=== PATIENT | female | born 1960 | race Caucasian/White ===

== ENCOUNTER → 2017-05-29 | Outpatient (CLI) | payer BC ==
[2017-05-29 07:34] LABS: Partial Thromboplastin Time 24.1 sec (22.0-30.0)
[2017-05-29 07:50] LABS: ALT 44 U/L (9-52); AST 29 U/L (14-36); Alkaline Phosphatase 106 U/L (38-126); Anion Gap 11 mmol/L; Blood Urea Nitrogen 23 mg/dL (7-17); Calcium 9.3 mg/dL (8.4-10.2); Carbon Dioxide 27 mmol/L (22-30); Chloride 103 mmol/L (98-107); Glucose 112 mg/dL (74-99); Non-African American GFR(MDRD) >60 (>60 ml/min/1.73 sqM); Sodium 141 mmol/L (137-145); Total Bilirubin 1.2 mg/dL (0.2-1.3)
[2017-05-29 08:17] LABS: Basophils % (A) 0 %; CH 29.7; CHCM 32.5; Eosinophils # (A) 0.3 k/uL (0-0.7); Eosinophils % (A) 4 %; HCT 42.7 % (34.0-46.0); HDW 2.33; HGB 13.7 gm/dL (11.4-16.0); Luc # (Auto) 0.13; Luc % (Auto) 2; Lymphocytes # (A) 2.6 k/uL (1.0-4.8); Lymphocytes % (A) 35 %; MCH 29.4 pg (25.0-35.0); MCV 91.7 fL (80.0-100.0); Mean Platelet Volume 8.6; Monocytes # (A) 0.4 k/uL (0-1.0); Monocytes % (A) 5 %; Neutrophils # (A) 3.9 k/uL (1.3-7.7); Neutrophils % (A) 53 %; RBC 4.66 m/uL (3.80-5.40); RDW 15.4 % (11.5-15.5); WBC 7.3 k/uL (3.8-10.6); WBC (Perox) 7.18
== END | disposition home or self-care (01) ==
LOC: LABPAT 07:06
PROVIDERS: ATTEND Orthopaedic Surgery
DX: Z01.812 Encounter for preprocedural laboratory examination (principal)
CPT/HCPCS: 80053; 85025; 85610; 85730; 87070

== ENCOUNTER 2017-06-15 07:34 | Inpatient (IN) | payer BC, OTHER ==
[2017-06-05 16:11] VITALS: BMI 43.9
--- NOTE | 2017-06-14 14:38 | HP ---
Surgery is scheduled for 06/15/2017. Darcy Kenyon is a 56-year-old patient seen with symptomatic left knee osteoarthritis. After discussing options regarding treatment, she elected to proceed with left total knee arthroplasty. Consent was obtained. Preoperative medical clearance was provided by Dr. Bray. PAST MEDICAL HISTORY: Hypertension, asthma. PAST SURGICAL HISTORY: Left knee arthroscopy. DAILY MEDICATIONS: Ibuprofen, triamterene/hydrochlorothiazide. ALLERGIES: None. SOCIAL HISTORY: Patient denies tobacco use. PHYSICAL EVALUATION OF THE LEFT KNEE: Her range of motion is 0 to 90 degrees. There is tenderness along the medial and lateral joint lines. Crepitance along the medial and patellofemoral compartment with range of motion. Pain on patellofemoral compression. Ligaments are stable. Hip rotation is without pain. Distal neurovascular exam is intact. Left knee radiographs reveal severe osteoarthritis. IMPRESSION: Left knee osteoarthritis. PLAN: Lef total knee arthroplasty. SOPHIA
[~2017-06-15 07:34] MED LIST: ACETAMINOPHEN TAB 500 MG TAB PO ONE; DEXAMETHASONE SOD PHOSPHATE 10 MG/ML 1 ML VIAL IV ONE; HYDROmorphone 1 MG/ML 1 ML SYRINGE IVP PRN; MELOXICAM 7.5 MG TAB PO ONE; MIDAZOLAM 2 MG/2 ML VIAL IV PRN; ONDANSETRON 4 MG/2 ML VIAL IVP ONE; TRANEXAMIC ACID 1,000 MG in SODIUM CHLORIDE 0.9% 100 ML IVPB ONE; ceFAZolin 2 GM in SODIUM CHLORIDE 0.9% 100 ML IVPB ONE
[2017-06-15] MEDS ORDERED: LIDOCAINE 1% 20 ML VIAL (10MG/ML) FOR IV START INTRADERMA ONE (12:00)
[2017-06-15] MEDS: LACTATED RINGERS 1,000 ML IV SCH ×2 (12:00→17:26)
[2017-06-15] MEDS ORDERED: ROPIVACAINE 1,100 MG, SODIUM CHLORIDE 0.9% 330 ML MISCELLANE PRN ×2 (12:33)
[2017-06-15] MEDS ORDERED: MIDAZOLAM 2 MG/2 ML VIAL ONE (13:05)
[2017-06-15] MEDS ORDERED: LIDOCAINE 1% INJ 10MG/ML (20 ML MDV) ONE (13:05)
[2017-06-15] MEDS ORDERED: LABETALOL 5 MG/ML VIAL MDV ONE (13:05)
[2017-06-15] MEDS ORDERED: PROPOFOL 10 MG/ML 20 ML VIAL IV ONE (13:05)
[2017-06-15] MEDS ORDERED: diphenhydrAMINE 50 MG/ML 1 ML VIAL ONE (13:05)
[2017-06-15] MEDS ORDERED: ceFAZolin 3,000 MG in SODIUM CHLORIDE 0.9% IRRIGATIO 3,000 ML IRRIGATION ONE (13:05)
[2017-06-15] MEDS ORDERED: KETAMINE 10 MG/ML 20 ML VIAL ONE (13:05)
[2017-06-15] MEDS: ROPIVACAINE 246.25 MG, EPINEPHrine 0.5 MG, KETOROLAC 30 MG, cloNIDine HCL/PF 80 MCG, WA... MISCELLANE ONE ×10 (13:39→14:30)
[2017-06-15] MEDS ORDERED: LACTATED RINGERS 1,000 ML IV ONE (14:05)
--- NOTE | 2017-06-15 15:18 | P.OP ---
Date of Procedure: 06/15/17 Preoperative Diagnosis: Left knee osteoarthritis Postoperative Diagnosis: Left knee osteoarthritis Procedure(s) Performed: Left total knee arthroplasty Implants: 1. Kevin persona size 5 narrow left cruciate retaining cemented femoral component 2. Kevin persona size C left cemented tibial tray 3. Kevin persona 14 mm medial congruent polyethylene tibial insert 4. Kevin persona 29 mm cemented all polyethylene patella Anesthesia: regional (Adductor canal block), local, spinal Surgeon: Robinson Hampton Leaf Fat Scraper #1: Elian Pathak Estimated Blood Loss (ml): 140 Pathology: other (Bone) Condition: stable Disposition: PACU Indications for Procedure: 56-year-old patient seen with symptomatic left knee osteoarthritis. After having options regarding treatment discussed, she elected to proceed with left total knee arthroplasty. Operative Findings: See description of procedure Description of Procedure: Patient was taken to the operative suite after having an adductor canal block performed by the department of anesthesia. Patient underwent a spinal anesthetic by the department of anesthesia. Patient was given preoperative IV intake antibiotics and TXA. A well-padded tourniquet was placed about the [] lower extremity. The lower extremity was then prepped and draped in the normal sterile orthopedic fashion. The extremity was elevated, a tourniquet was insufflated to 350. A standard anterior incision was made sharply through skin. Dissection was taken down through the subcutaneous soft tissues down to the extensor mechanism. A medial arthrotomy was performed, patella was everted and knee was flexed. There was advanced osteoarthritis noted. A proximal tibial cutting guide was positioned. Proximal tibial cut was made. A distal intramedullary femoral cutting guide was positioned, distal femoral cut made. We placed the appropriate sizing guide and selected the appropriate size. A distal 4-in-1 femoral cutting block was positioned, distal femoral cuts were made. We now placed a trial femoral component into position, along with an appropriate size tibial tray and insert. We now took the knee through range of motion and had full extension good flexion and good overall soft tissue balance noted. The patella was everted and a flush cut made with patellar quad tendon. We templated the patella, appropriate drill holes were made. An appropriate trial patella was positioned, knee was taken through full range of motion with the patella tracking very nicely. The trial patella was removed. Drill holes were made through the femoral component. All trial components were removed after marking off the appropriate rotation of the tibia. Retractors were now positioned along the proximal tibia. An appropriate keel punch was made with the appropriate size tibial guide. At this point appropriate size implants were chosen and opened. The joint was irrigated copiously with pulse lavage mechanical irrigation. The deep soft tissues were infiltrated with local analgesic. We mixed antibiotic methylmethacrylate. Once the methyl methacrylate was ready, the tibial component was cemented into place removing any excess methylmethacrylate. The femoral component was cemented into place removing the removing any excess methylmethacrylate. We then inserted the appropriate size polyethylene tibial insert. We made sure that it was locked into position. We took the knee into full extension, and then back in a flexion making sure we had removed any excess methylmethacrylate. The patellar component was then cemented down and secured with clamp. Excess methylmethacrylate removed. We kept the knee in full extension, patellar clamp in position until methylmethacrylate had hardened. Once it had hardened the patellar clamp was removed. The knee was taken through full range of motion. The patella tracked nicely. There was good soft tissue balancing. Noticed some hyperextension of the joint at this point. At this point the tibial polyethylene insert was removed. Then placed trials working our way to a size 14 which gave us better stability. I now opened a 14 mm medial congruent polyethylene tibial insert and insert it without difficulty making sure locked in position. I now took the knee through range of motion with full range of motion with full extension and good stability. The tourniquet was now released. Additional hemostasis was achieved via electrocautery. A second gram of TXA was given. The superficial soft tissues were infiltrated local analgesic. The extensor mechanism was repaired with Vicryl. We checked the repair with range of motion and it was stable. The subcutaneous soft tissues were repaired with Vicryl in layers. The skin was approximated with pernio/ Dermabond. Sterile dressings were applied followed by loose web roll and North bandage. The patient was transferred to a bed, and taken to recovery in stable and satisfactory condition. Andrae DELVALLE assisted with the procedure.
[2017-06-15] MEDS ORDERED: ONDANSETRON 4 MG/2 ML VIAL IVP PRN (15:19)
[2017-06-15] MEDS ORDERED: HYDROmorphone 1 MG/ML 1 ML SYRINGE IVP PRN ×2 (15:19)
[2017-06-15] MEDS ORDERED: HYDROcodone/APAP 7.5-325MG 1 EACH TAB PO PRN (15:19)
[2017-06-15] MEDS ORDERED: NALOXONE 0.4 MG/ML 1 ML VIAL IV PRN (15:19)
--- NOTE | 2017-06-15 16:05 | XR ---
EXAMINATION TYPE: XR knee limited LT DATE OF EXAM: 06/15/2017 CLINICAL HISTORY: Postoperative evaluation Two views of the left knee are submitted. Identified are changes of total knee arthroplasty with fem oral and tibial components appearing well seated. Postsurgical soft tissue changes are noted. Align ment is anatomic.
[2017-06-15] MEDS: HYDROmorphone 1 MG/ML 1 ML SYRINGE IVP PRN ×2 (17:27→21:35)
[2017-06-15] MEDS: ceFAZolin 2 GM in SODIUM CHLORIDE 0.9% 100 ML IVPB SCH (17:36)
[2017-06-15] MEDS: traMADol 50 MG TAB PO SCH (17:36)
[2017-06-15] MEDS: SENNOSIDES-DOCUSATE SODIUM 1 EACH TAB PO SCH (20:06)
[2017-06-15] MEDS: EZETIMIBE 10 MG TAB PO SCH (20:07)
[2017-06-15] MEDS: ENOXAPARIN 30 MG/0.3 ML SYRINGE SQ SCH (20:08)
--- NOTE | 2017-06-15 20:42 | P.ONQ ---
Anesthesiology Proc Note - PNB - Peripheral Nerve Block Performed Left Adductor Canal Infusion Time Out Performed: Yes Procedure Start Time: 12:23 Procedure Stop Time: 12:35 Indication: Acute Post-Operative Pain, Requested by physician Sedation Type: Sedate with meaningful contact maintained Preparation: Sterile Dressing Position: Supine Catheter: Indwelling Needle Types: On-Q Needle Size: 150mm (6") Needle Gauge: 21 Technique: Ultrasound Injectate: 0.5% Ropivacaine (see comment for volume) (.5% ropi) Blood Aspirated: No Pain Paresthesia on Injection Noted: No Resistance on Injection: Normal Events: Uneventful and Well Tolerated
[2017-06-16] MEDS: traMADol 50 MG TAB PO SCH ×5 (00:35→23:41)
[2017-06-16] MEDS: HYDROmorphone 1 MG/ML 1 ML SYRINGE IVP PRN ×4 (00:36→23:40)
[2017-06-16] MEDS: ceFAZolin 2 GM in SODIUM CHLORIDE 0.9% 100 ML IVPB SCH (01:36)
[2017-06-16] MEDS: LACTATED RINGERS 1,000 ML IV SCH ×3 (07:07→09:21)
[2017-06-16] MEDS: HYDROcodone/APAP 7.5-325MG 1 EACH TAB PO PRN ×4 (07:10→22:14)
--- NOTE | 2017-06-16 07:29 | CONS ---
REASON FOR CONSULTATION: Advice regarding hypertension and other medical issues requested by Dr. Hampton. HISTORY OF PRESENT ILLNESS: This 56-year-old woman who has a past medical history of hypertension and hyperlipidemia being following by Dr. Bray in the outpatient setting admitted with left knee joint arthroplasty. There is no history of chest pain. No history of palpitation. No history of headache, loss of consciousness or seizures at this time. PAST MEDICAL HISTORY: CVA, TIA, hypertension, hyperlipidemia, sleep apnea. Medications prior to admission include: 1. Maxzide 37.5 mg/25 mg 1 p.o. daily. 2. Aleve 440 mg p.o. b.i.d. 3. Zetia 10 mg p.o. daily. Allergies are none. FAMILY HISTORY: History of breast cancer in the family. SOCIAL HISTORY: No history of smoking. No history of alcohol intake. REVIEW OF SYSTEMS: ENT: No diminished hearing or diminished vision. CARDIOVASCULAR SYSTEM: No angina. RESPIRATORY SYSTEM: No cough or hemoptysis. GI: No nausea. : No dysuria. NERVOUS SYSTEM: No numbness or weakness. ALLERGY/IMMUNOLOGY: No asthma. MUSCULOSKELETAL: As mentioned earlier. HEMATOLOGY: No history of anemia. ENDOCRINE: No history of diabetes or hypothyroidism. CONSTITUTIONAL: As mentioned earlier. DERMATOLOGY: Negative. RHEUMATOLOGY: Negative. PSYCHIATRY: As mentioned. PHYSICAL EXAMINATION: Patient is alert and oriented x3. The pulse is 57, blood pressure 112/67, respirations 16, temperature is normal, pulse ox 96% on 3 L. HEENT: Conjunctivae normal. NECK: No jugular venous distention. CARDIOVASCULAR: S1 and S2 muffled. RESPIRATORY: Breath sounds diminished at the bases. No rhonchi. No crackles. ABDOMEN: Soft, nontender. No mass palpable. LEGS: Status post left knee arthroplasty. NERVOUS SYSTEM: Higher function as mentioned earlier. Moves all 4 limbs. No focal deficits. LYMPHATICS: No lymphadenopathy of the neck, axillae or groin. SKIN: No ulcers, rashes or bleeding. Labs which are done during the previous admission. CBC within normal limits. BMP showed BUN is 23, otherwise within normal limits. Triglycerides 333, cholesterol 301. ASSESSMENT: 1. Status post left total knee arthroplasty. 2. History of cerebrovascular accident and transient ischemic attack. 3. Hypertension. 4. Hyperlipidemia. 5. History of sleep apnea. 6. History of ablation. RECOMMENDATIONS AND DISCUSSION: In this 56-year-old woman who presented with multiple complex medical issues, will monitor the patient closely. Continue the current medications. Continue symptomatic treatment. Otherwise, at this time I recommend continue with the home medications, incentive spirometry, DVT prophylaxis. Closely follow with orthopedic surgery. Patient may be asked to follow with Dr. Bray closely after discharge. Thank you Dr. Hampton for letting us participate in the care of this patient. SOPHIA
[2017-06-16 08:45] LABS: Basophils % (A) 0 %; CH 29.9; CHCM 32.1; Eosinophils % (A) 0 %; HCT 37.2 % (34.0-46.0); HDW 2.31; HGB 11.7 gm/dL (11.4-16.0); Luc # (Auto) 0.09; Luc % (Auto) 1; Lymphocytes # (A) 1.5 k/uL (1.0-4.8); Lymphocytes % (A) 14 %; MCH 29.6 pg (25.0-35.0); MCHC 31.5 g/dL (31.0-37.0); MCV 93.7 fL (80.0-100.0); Mean Platelet Volume 8.8; Monocytes # (A) 0.5 k/uL (0-1.0); Monocytes % (A) 5 %; Neutrophils # (A) 8.7 k/uL (1.3-7.7); Neutrophils % (A) 80 %; RBC 3.96 m/uL (3.80-5.40); RDW 15.3 % (11.5-15.5); WBC 10.8 k/uL (3.8-10.6); WBC (Perox) 10.86
[2017-06-16] MEDS: ENOXAPARIN 30 MG/0.3 ML SYRINGE SQ SCH ×2 (09:15→21:26)
[2017-06-16] MEDS: EZETIMIBE 10 MG TAB PO SCH (09:15)
[2017-06-16] MEDS: TRIAMTERENE-HCTZ 37.5-25MG 1 EACH TAB PO SCH (09:17)
--- NOTE | 2017-06-16 10:18 | P.PN ---
Progress Note - Text 06/16 740am 56-year-old female status post total knee replacement by Dr. Memo Roca seen and evaluated for pain control this morning, patient has an On-Q pump running at 8 mL an hour. It is a VAS of 3. Plan to continue On-Q pump infusion and increase the rate of needed..
[2017-06-16] MEDS: MELOXICAM 7.5 MG TAB PO SCH (10:51)
[2017-06-16] MEDS: FAMOTIDINE 20 MG TAB PO SCH (10:51)
[2017-06-16] MEDS: MULTIVITAMINS, THERA 1 EACH TAB PO SCH ×2 (10:52→11:04)
--- NOTE | 2017-06-16 10:57 | P.PN ---
Subjective Principal diagnosis: Status post left total knee arthroplasty Patient is seen today resting in her hospital chair, her daughters present at bedside. She states the pain is controlled with current medication. She's ambulated with therapy. She denies any chest pain, shortness of breath, chills , abdominal discomfort. Objective - Vital Signs Vital signs: Vital Signs Temp 98.3 F 06/16/17 07:55 Pulse 74 06/16/17 07:55 Resp 16 06/16/17 07:55 BP 114/71 06/16/17 07:55 Pulse Ox 98 06/16/17 07:55 Intake & Output 06/15/17 06/16/17 06/16/17 18:59 06:59 18:59 Intake Total 1651 1760 Output Total 1015 700 Balance 636 1760 -700 Weight 108.862 kg Intake: IV 1651 Intake, IV Titration 800 Amount Lactated Ringers 1,000 ml 800 @ 100 mls/hr IV .Q10H LUPE Rx#:[id number] Oral 960 Output: Urine 875 700 Uretheral (Valentine) 700 Estimated Blood Loss 140 Other: Voiding Method Indwelling Catheter Indwelling Catheter Indwelling Catheter # Voids 1 - Exam Left lower extremity: Incision is clean, dry, and intact. Animal soft tissue swelling present around the knee. Calf soft, no tenderness with palpation. Plantar flexion, dorsiflexion, EHL, FHL are intact. Sensory exam to light touch throughout extremities intact, dorsal pedis pulses 2+ - Labs CBC & Chem 7: 06/16/17 08:06 Labs: Abnormal Lab Results - Last 24 Hours (Table) 06/16/17 Range/Units 08:06 WBC 10.8 H (3.8-10.6) k/uL Neutrophils # 8.7 H (1.3-7.7) k/uL Assessment and Plan Plan: Assessment: 1. Postop day #1 status post left total knee arthroplasty Plan: 1. Pain control, continue use of medication 2. Continue with physical therapy and CPM 3. Ice and elevate/daily dressing changes 4. GI and DVT prophylaxis, continue Lovenox medication 5. Medical recommendations 6. Discharge planning: Patient will be likely discharged home tomorrow Time with Patient: Less than 30
[2017-06-16] MEDS: hydrOXYzine PAMOATE 25 MG CAP PO PRN (12:09)
[2017-06-16] MEDS: SENNOSIDES-DOCUSATE SODIUM 1 EACH TAB PO SCH (20:56)
[2017-06-17] MEDS: LACTATED RINGERS 1,000 ML IV SCH ×2 (01:59→15:46)
[2017-06-17] MEDS: HYDROcodone/APAP 7.5-325MG 1 EACH TAB PO PRN ×4 (05:19→23:16)
[2017-06-17] MEDS: hydrOXYzine PAMOATE 25 MG CAP PO PRN ×3 (05:20→16:29)
[2017-06-17] MEDS: MELOXICAM 7.5 MG TAB PO SCH (08:51)
[2017-06-17] MEDS: EZETIMIBE 10 MG TAB PO SCH (08:52)
[2017-06-17] MEDS: TRIAMTERENE-HCTZ 37.5-25MG 1 EACH TAB PO SCH (08:53)
[2017-06-17] MEDS: traMADol 50 MG TAB PO SCH ×4 (08:53→23:56)
[2017-06-17] MEDS: FAMOTIDINE 20 MG TAB PO SCH (11:06)
[2017-06-17] MEDS: ENOXAPARIN 30 MG/0.3 ML SYRINGE SQ SCH ×2 (11:08→21:04)
--- NOTE | 2017-06-17 11:29 | PN ---
DATE OF SERVICE: 06/16/17 This 56 -year-old woman who was admitted after left total knee arthroplasty also had history of CVA, TIA. No chest pain. No palpitations. No fever. On exam, the patient is alert and oriented times three. Pulse 64. Blood pressure 135/60. Respiratory rate 16. Temperature 97.8 degrees. Pulse ox 93 % on room air. HEENT: Conjunctivae normal. Neck: No JVD. CARDIOVASCULAR: S1 , S2 muffled. Respiratory: Breath sounds diminished at the bases. No rhonchi. No crackles. Abdomen soft, nontender. LEGS: Status post left knee surgery. AUDIT MGR: No focal deficits. LABS: WBC 10.8. ASSESSMENT: 1. Status post left total knee arthroplasty. 2. History of cerebrovascular accident, transient ischemic attack. 3. Hypertension. 4. Hyperlipidemia. 5. Sleep apnea. 6. History of ablation. RECOMMENDATIONS AND DISCUSSION: Recommend to continue the current medications, continue symptomatic treatment, otherwise closely monitor. DVT prophylaxis. Incentive spirometry. Further recommendations to follow. MTDD
[2017-06-17] MEDS: MULTIVITAMINS, THERA 1 EACH TAB PO SCH (12:24)
[2017-06-17 14:19] LABS: Appearance,Urine Cloudy (Clear); Bacteria,Urine Rare /hpf; Bilirubin,Urine Negative (Negative); Glucose,Urine (UA) Negative (Negative); Ketones,Urine Negative (Negative); Leukocyte Esterase,Urine Small (Negative); Mucus,Urine Rare /hpf; Nitrite,Urine Negative (Negative); Particle Count 2906; Protein,Urine Negative (Negative); Specific Gravity,Urine 1.012 (1.001-1.035); Squamous Epithelial Cell,Urine 4 /hpf (0-4); UA Billing (MACRO vs. MICRO) MICRO; Urobilinogen,Urine <2.0 mg/dL (<2.0); WBC,Urine 4 /hpf (0-5)
[2017-06-17] MEDS: SENNOSIDES-DOCUSATE SODIUM 1 EACH TAB PO SCH (21:03)
[2017-06-18 02:11] VITALS: TEMP 97.1
[2017-06-18 07:03] LABS: Basophils % (A) 0 %; CH 30.4; CHCM 32.8; Eosinophils # (A) 0.2 k/uL (0-0.7); Eosinophils % (A) 2 %; HCT 38.5 % (34.0-46.0); HDW 2.31; HGB 12.2 gm/dL (11.4-16.0); Luc # (Auto) 0.07; Luc % (Auto) 1; Lymphocytes # (A) 1.9 k/uL (1.0-4.8); Lymphocytes % (A) 23 %; MCH 29.4 pg (25.0-35.0); MCHC 31.6 g/dL (31.0-37.0); Mean Platelet Volume 8.6; Monocytes # (A) 0.4 k/uL (0-1.0); Monocytes % (A) 5 %; Neutrophils # (A) 5.6 k/uL (1.3-7.7); Neutrophils % (A) 68 %; RBC 4.14 m/uL (3.80-5.40); RDW 15.4 % (11.5-15.5); WBC 8.2 k/uL (3.8-10.6); WBC (Perox) 7.96
--- NOTE | 2017-06-18 07:31 | PN ---
DATE OF SERVICE: 06/17/17 This 56-year-old woman who was admitted after left arthroplasty is being closely monitored. No chest pain. No palpitations. No fever. On exam, the patient is alert and oriented times three. Pulse 69. Blood pressure 151/68. Respiratory rate 16. Temperature 98.4. Pulse ox 98% on room air. HEENT: Conjunctivae normal. NECK: No JVD. CARDIOVASCULAR: S1, S2 muffled. RESPIRATORY: Breath sounds diminished at the bases. No rhonchi and no crackles. Abdomen is soft. Nontender. Legs status post surgery. LABS: WBC 10.8, hemoglobin 11.7. UA noted. ASSESSMENT: 1. Status post left total knee joint arthroplasty. 2. History of cerebrovascular accident/transient ischemic attack. 3. Hypertension. 4. Hyperlipidemia. RECOMMENDATIONS AND DISCUSSION: Recommend to continue the current medications. Continue with symptomatic treatment. I recommend urine cultures. Repeat labs in the morning. Otherwise, continue to monitor. Pain medication. Further recommendations to follow. HERBERD
[2017-06-18] MEDS: LACTATED RINGERS 1,000 ML IV SCH ×6 (08:08→15:19)
[2017-06-18] MEDS: ENOXAPARIN 30 MG/0.3 ML SYRINGE SQ SCH (08:08)
[2017-06-18] MEDS: MELOXICAM 7.5 MG TAB PO SCH (08:09)
[2017-06-18] MEDS: TRIAMTERENE-HCTZ 37.5-25MG 1 EACH TAB PO SCH (08:10)
[2017-06-18] MEDS: HYDROcodone/APAP 7.5-325MG 1 EACH TAB PO PRN ×2 (08:10→14:02)
[2017-06-18] MEDS: FAMOTIDINE 20 MG TAB PO SCH (08:10)
[2017-06-18] MEDS: EZETIMIBE 10 MG TAB PO SCH (08:10)
[2017-06-18] MEDS: MULTIVITAMINS, THERA 1 EACH TAB PO SCH (08:10)
[2017-06-18 08:19] VITALS: BP 140/90; PULSE 90; RESP 16
--- NOTE | 2017-06-18 08:52 | P.DS ---
Providers Date of admission: 06/15/17 11:26 Expected date of discharge: 06/18/17 Attending physician: Robinson Hampton Consults: 06/15/17 15:19 Consult Physician Routine Consulting Provider: Sandy Nicole Consult Reason/Comments: Medical management Do you want consulting provider notified?: Yes Primary care physician: Ashish Aiken [facility] Course: Date of admission: 06/15/2017 Date of discharge: 06/18/2017 Admission diagnosis: Status post left total knee arthroplasty Discharge diagnosis: Same Attending physician: Dr. Hampton Surgical procedures: Left total knee arthroplasty Brief history: Patient is a 56-year-old female with a history of progressive primary left knee osteoarthritis. At this point patient has failed conservative treatment measures and has opted to proceed with a elective left total knee arthroplasty. Hospital course: Details of patient's surgery can be found in operative report. Patient tolerated the procedure well and was subsequently transported to orthopedic floor. Patient's orthopeidc and medical care was provided daily. Patient had daily laboratory tests performed for evaluation of overall blood counts. Patient had daily physical therapy to include strengthening range of motion as well as education with walker ambulation. Patient had daily CPM usage as part of their physical therapy program. Patient was treated with Lovenox for their postoperative DVT prophylaxis during their inpatient stay. Patient was noted to have a relatively uneventful postoperative course. Patient reported satisfactory pain control with oral pain medications by postoperative day 0. Patient showed satisfactory progress with physical therapy. Patient moved steadily through the program and had no difficulty meeting the goals by postoperative day 2. Given patient's otherwise satisfactory course and having met physical therapy goals, plan is to discharge patient home on postoperative day 2. Discharge condition/disposition: Patient will be discharged home in stable condition. Discharge medications: Instructions are given on resumption of patient's normal daily medications per primary care recommendation, in addition patient will be prescribed [place] 7.5 mg/325 mg, tramadol 50 mg, Vistaril 25 mg, Colace 100 mg, Pepcid 20 mg, Xarelto 10 mg. Discharge instructions: 1. Wound care and infection precautions, keep incision dry and covered while showering, no lotions, creams, moisturizers. No soaking, tubs, pools, hottubs. Do not scrub over the incision. 2. Weight-bear as tolerated with walker / cane until follow-up. 3. Ice and elevate when necessary. Do not exceed 20 minutes per hour with ice pack. 4. Utilize compression sleeve until seen at first follow up appointment. 5. Visiting nursing care. 6. Home physical therapy including home CPM. 7. Pain meds and anticoagulants per prescription. 8. Pain medication has potential to cause constipation. Increase oral fluid and fiber intake. Contact primary care provider if you have not had a bowel movement within 48 hours after discharge 9. No anti-inflammatory medication until discussed at first post operative visit, this including Motrin, Aleve, Mobic, Diclofenac. 10. Follow up in office at 2 weeks postop with Andrae Pathak PA-C 11. Follow up with your primary care doctor 7-10 days after discharge. 12. Contact [facility] with any questions, . Procedures: Left total knee arthroplasty Patient Condition at Discharge: Good Plan - Discharge Summary New Discharge Prescriptions: New Rivaroxaban [Xarelto] 10 mg PO DAILY #12 tab Docusate [Colace] 100 mg PO DAILY #30 capsule Famotidine [Pepcid] 20 mg PO DAILY #30 tablet HYDROcodone/APAP 7.5-325MG [[place] 7.5] 1 - 2 each PO Q6HR PRN #60 tab PRN Reason: Pain hydrOXYzine PAMOATE [Vistaril] 25 mg PO Q6HR #40 capsule traMADol HCl [Ultram] 50 mg PO Q6H PRN #40 tab PRN Reason: Pain No Action Triamterene-Hctz 37.5-25Mg [Maxzide 37.5-25] 1 tab PO DAILY Naproxen Sodium [Aleve] 440 mg PO BID Ezetimibe [Zetia] 10 mg PO DAILY Discharge Medication List Ezetimibe [Zetia] 10 mg PO DAILY 06/05/17 [History] Naproxen Sodium [Aleve] 440 mg PO BID 06/05/17 [History] Triamterene-Hctz 37.5-25Mg [Maxzide 37.5-25] 1 tab PO DAILY 06/05/17 [History] Rivaroxaban [Xarelto] 10 mg PO DAILY #12 tab 06/16/17 [Rx] Docusate [Colace] 100 mg PO DAILY #30 capsule 06/18/17 [Rx] Famotidine [Pepcid] 20 mg PO DAILY #30 tablet 06/18/17 [Rx] HYDROcodone/APAP 7.5-325MG [[place] 7.5] 1 - 2 each PO Q6HR PRN #60 tab 06/18/17 [ Rx] hydrOXYzine PAMOATE [Vistaril] 25 mg PO Q6HR #40 capsule 06/18/17 [Rx] traMADol HCl [Ultram] 50 mg PO Q6H PRN #40 tab 06/18/17 [Rx] Follow up Appointment(s)/Referral(s): Ashish Bray III, MD [Primary Care Provider] - 06/25/17 9:[address] [facility], [NON-STAFF] - 1 Week Elian Patahk PAC [PHYSICIAN HOSPITALIST MEDICAL DIRECTOR] - 07/01/17 3:00 pm Activity/Diet/Wound Care/Special Instructions: Orthopedic Discharge Instructions: 1. Wound care and infection precautions, keep incision dry and covered while showering, no lotions, creams, moisturizers. No soaking, pools, hot tubs. Do not scrub over incision. 2. Weight-bear as tolerated with walker / cane until follow-up. 3. Ice and elevate when necessary. Do not exceed 20 minutes per hour with ice pack. 4. Utilize compression sleeve until seen at first follow up appointment. 5. Visiting nursing care. 6. Home physical therapy including home CPM. 7. Pain meds and anticoagulants per prescription. 8. Pain medication has potential to cause constipation. Increase oral fluid and fiber intake. Contact primary care provider if you have not had a bowel movement within 48 hours after discharge. 9. No anti-inflammatory medication until discussed at first post operative visit, this including Motrin, Aleve, Mobic, Diclofenac. 10. Follow up in office at 2 weeks postop with Andrae Pathak PA-C 11. Follow up with your primary care doctor 7-10 days after discharge. 12. Contact [facility] with any questions, . Discharge Disposition: HOME WITH HOME HEALTH SERVICES
--- NOTE | 2017-06-18 10:52 | P.PN ---
Subjective Principal diagnosis: Status post left total knee arthroplasty Patient is seen today resting in her hospital chair, her daughters present at bedside. She states the pain is controlled with current medication. She's ambulated with therapy. She denies any chest pain, shortness of breath, chills , abdominal discomfort. Objective - Vital Signs Vital signs: Vital Signs Temp 97.1 F L 06/18/17 07:00 Pulse 90 06/18/17 07:00 Resp 16 06/18/17 07:00 BP 140/90 06/18/17 07:00 Pulse Ox 94 L 06/18/17 07:00 Intake & Output 06/17/17 06/18/17 06/18/17 18:59 06:59 18:59 Intake Total 780 120 Balance 780 120 Intake: Oral 780 120 Other: Voiding Method Toilet Toilet Toilet # Voids 3 - Exam Left lower extremity: Incision is clean, dry, and intact. Animal soft tissue swelling present around the knee. Calf soft, no tenderness with palpation. Plantar flexion, dorsiflexion, EHL, FHL are intact. Sensory exam to light touch throughout extremities intact, dorsal pedis pulses 2+ - Labs CBC & Chem 7: 06/18/17 06:30 Labs: Abnormal Lab Results - Last 24 Hours (Table) 06/17/17 Range/Units 14:00 Urine Appearance Cloudy H (Clear) Ur Leukocyte Esterase Small H (Negative) Urine Bacteria Rare H (None) /hpf Urine Mucus Rare H (None) /hpf Microbiology - Last 24 Hours (Table) 06/17/17 14:00 Urine Culture - Preliminary Urine,Clean Catch Assessment and Plan Plan: Assessment: 1. Postop day #3 status post left total knee arthroplasty Plan: 1. Pain control, continue use of medication 2. Continue with physical therapy and CPM 3. Ice and elevate/daily dressing changes 4. GI and DVT prophylaxis, discharged home on Xarelto 10mg 5. Medical recommendations 6. Discharge planning: Patient will be discharged home today Time with Patient: Less than 30
[2017-06-18] MEDS: traMADol 50 MG TAB PO SCH (15:18)
--- NOTE | 2017-06-18 15:37 | P.PN ---
Subjective This 56-year-old woman who was admitted after left knee arthroplasty is improved significantly. No chest pain palpitations shortness with. Orthopedics is blind discharge. Minimal cough is reported. Objective - Vital Signs Vital signs: Vital Signs Temp 97.1 F L 06/18/17 07:00 Pulse 90 06/18/17 07:00 Resp 16 06/18/17 07:00 BP 140/90 06/18/17 07:00 Pulse Ox 94 L 06/18/17 07:00 Intake & Output 06/17/17 06/18/17 06/18/17 18:59 06:59 18:59 Intake Total 780 120 Balance 780 120 Intake: Oral 780 120 Other: Voiding Method Toilet Toilet Toilet # Voids 3 2 - Exam On exam, alert and oriented x3. HEENT: Conjunctivae normal. eyes normal. NECK: No JVD. No thyroid enlargement. No LNs CARDIOVASCULAR: S1, S2 muffled. No murmur RESPIRATION: Breath sounds diminished in the bases. No rhonchi or crackles. No bronchial breathing. ABDOMEN: Soft, nontender . No guarding. no masses palpable. No ascites, No hepatosplenomegaly.Bowel sounds heard. LEGS: Status post left knee joint arthroplasty NERVOUS SYSTEM: Cranial N 2-12 grossly normal. Moves all 4 limbs. No focal deficits. No sensory deficit. No signs of cerebellar dysfucntion. Skin: no ulcer no rash Joints: No active swelling. No inflammation. Lymphatic system. No LN neck axilla or groin. - Labs CBC & Chem 7: 06/18/17 06:30 Labs: Microbiology - Last 24 Hours (Table) 06/17/17 14:00 Urine Culture - Preliminary Urine,Clean Catch Assessment and Plan Plan: Assessment 1. Status post left total knee joint arthroplasty 2. History of CVA TIA 3. Hypertension 4. Hyperlipidemia. Plan In this 56-year-old woman I would recommend to continue the current medications. Orthopedics is planning discharged in this time. Recommended continue home medications. Incentive spirometry. Follow-up with closely with the primary physician. Rest of the recommendations per orthopedic surgery.
== END 2017-06-18 15:39 | disposition home health service (06) | DRG 470 ==
LOC: 2ORMAIN 11:26 → 3SUR 15:41
PROVIDERS: ADMIT Orthopaedic Surgery; ATTEND Orthopaedic Surgery
PROC: 0SRD0J9 Replacement of Left Knee Joint with Synthetic Substitute, Cemented, Open Approach (ICD-10-PCS; principal; 2017-06-15 13:05)
DX: M17.12 Unilateral primary osteoarthritis, left knee (principal); I10 Essential (primary) hypertension; E78.5 Hyperlipidemia, unspecified; G47.30 Sleep apnea, unspecified; J45.909 Unspecified asthma, uncomplicated; Z86.73 Personal history of transient ischemic attack (TIA), and cerebral infarction without residual deficits; Z79.1 Long term (current) use of non-steroidal anti-inflammatories (NSAID); Z79.899 Other long term (current) drug therapy
CPT/HCPCS: 81001; 85025; 87086; 88300

== ENCOUNTER 2018-10-02 08:10 | Observation (INO) | payer BC ==
[2018-10-02] MEDS ORDERED: DIAZEPAM 5 MG/ML 2 ML INJ IVP STA (08:50)
[2018-10-02] MEDS ORDERED: MECLIZINE 25 MG TAB PO STA (08:50)
[2018-10-02] MEDS ORDERED: SODIUM CHLORIDE 0.9% 500 ML 500 ML IV ONE (08:50)
[2018-10-02] MEDS ORDERED: ONDANSETRON 4 MG/2 ML VIAL IVP STA (08:50)
[2018-10-02 09:11] LABS: Basophils % (A) 0 %; Eosinophils # (A) 0.2 k/uL (0-0.7); Eosinophils % (A) 3 %; HCT 42.4 % (34.0-46.0); HGB 13.6 gm/dL (11.4-16.0); Lymphocytes # (A) 2.5 k/uL (1.0-4.8); Lymphocytes % (A) 35 %; MCH 28.6 pg (25.0-35.0); MCHC 32.1 g/dL (31.0-37.0); Mean Platelet Volume 7.7; Monocytes # (A) 0.3 k/uL (0-1.0); Monocytes % (A) 4 %; Neutrophils # (A) 4.1 k/uL (1.3-7.7); Neutrophils % (A) 56 %; Platelet Count 219 k/uL (150-450); RBC 4.76 m/uL (3.80-5.40); RDW 14.9 % (11.5-15.5); WBC 7.3 k/uL (3.8-10.6)
--- NOTE | 2018-10-02 09:13 | ED ---
General Adult HPI - General Chief complaint: Dizziness Stated complaint: VERTIGO,MIGRAINE Time Seen by Provider: 10/02/18 08:15 Source: patient, RN notes reviewed Mode of arrival: ambulatory Limitations: no limitations - History of Present Illness Initial comments: This is an 58-year-old female presents emergency department with past medical history significant for vertigo. Patient states she woke up this morning the room was spinning anytime she moves her head the symptoms worsened. Patient denies any numbness or weakness. Patient states she is having a headache since she's been dizzy but it was not there when she began to be dizzy. Patient denies any palpitations patient denies chest pain patient denies shortness of breath or difficulty breathing. Patient denies any recent fever chills or cough. Patient denies any abdominal pain. Patient denies vomiting but is very nauseated. Patient states this feels exactly same from when she's had her vertigo episodes in the past. - Related Data Home Medications Medication Instructions Recorded Confirmed Ezetimibe [Zetia] 10 mg PO DAILY 06/05/17 06/15/17 Triamterene-Hctz 37.5-25Mg 1 tab PO DAILY 06/05/17 06/15/17 [Maxzide 37.5-25] Previous Rx's Medication Instructions Recorded Rivaroxaban [Xarelto] 10 mg PO DAILY #12 tab 06/16/17 Docusate [Colace] 100 mg PO DAILY #30 capsule 06/18/17 Famotidine [Pepcid] 20 mg PO DAILY #30 tablet 06/18/17 HYDROcodone/APAP 7.5-325MG [[place] 1 - 2 each PO Q6HR PRN #60 tab 06/18/17 7.5] hydrOXYzine PAMOATE [Vistaril] 25 mg PO Q6HR #40 capsule 06/18/17 traMADol HCl [Ultram] 50 mg PO Q6H PRN #40 tab 06/18/17 Allergies Allergy/AdvReac Type Severity Reaction Status Date / Time No Known Allergies Allergy Verified 10/02/18 08:17 Review of Systems ROS Statement: Those systems with pertinent positive or pertinent negative responses have been documented in the HPI. ROS Other: All systems not noted in ROS Statement are negative. Past Medical History Past Medical History: CVA/TIA, Hyperlipidemia, Hypertension, Sleep Apnea/CPAP/ BIPAP Additional Past Medical History / Comment(s): TIA, C PAP History of Any Multi-Drug Resistant Organisms: None Reported Past Surgical History: Ablation, Heart Catheterization, Tubal Ligation Additional Past Surgical History / Comment(s): ARTHROSCOPIC LEFT KNEE, SURGERY FOR HEAD INJURY , UTERINE ABLATION. NASAL SURGERY TLk june 15, 2017 Past Anesthesia/Blood Transfusion Reactions: Motion Sickness, Postoperative Nausea & Vomiting (PONV) Past Psychological History: No Psychological Hx Reported Smoking Status: Never smoker Past Alcohol Use History: Rare Past Drug Use History: None Reported - Past Family History Mother Family Medical History: No Reported History Daughter(s) Family Medical History: Cancer Additional Family Medical History / Comment(s): BREAST CANCER General Exam - General Exam Comments Initial Comments: GENERAL: Patient is well-developed and well-nourished. Patient is nontoxic and well- hydrated and is in mild distress. ENT: Neck is soft and supple. No significant lymphadenopathy is noted. Oropharynx is clear. Moist mucous membranes. Neck has full range of motion without eliciting any pain. EYES: The sclera were anicteric and conjunctiva were pink and moist. Extraocular movements were intact and pupils were equal round and reactive to light. Eyelids were unremarkable. PULMONARY: Unlabored respirations. Good breath sounds bilaterally. No audible rales rhonchi or wheezing was noted. CARDIOVASCULAR: There is a regular rate and rhythm without any murmurs gallops or rubs. ABDOMEN: Soft and nontender with normal bowel sounds. No palpable organomegaly was noted. There is no palpable pulsatile mass. SKIN: Skin is clear with no lesions or rashes and otherwise unremarkable. NEUROLOGIC: Patient is alert and oriented x3. Cranial nerves II through XII are grossly intact. Motor and sensory are also intact. Normal speech, volume and content. Symmetrical smile. Cerebellar exam grossly intact. MUSCULOSKELETAL: Normal extremities with adequate strength and full range of motion. No lower extremity swelling or edema. No calf tenderness. LYMPHATICS: No significant lymphadenopathy is noted PSYCHIATRIC: Normal psychiatric evaluation. Limitations: no limitations Course Vital Signs 10/02/18 10/02/18 10/02/18 08:17 10:30 10:47 Temperature 97.4 F L Pulse Rate 61 58 L 60 Respiratory 18 19 16 Rate Blood Pressure 159/93 176/99 164/81 O2 Sat by Pulse 99 99 97 Oximetry Medical Decision Making - Medical Decision Making EKG shows sinus rhythm at 62 bpm KS interval is 210 QRS 96 QT interval 440 QTC is 446. Patient's EKG shows no ST segment elevation or depression or T wave abnormalities are noted. CT of the brain shows no acute abnormality. Chest x-ray shows no acute normalities. I will begin to reevaluate the patient and she continued to be vertiginous. I try to him tonight the patient but she was unsteady and became instantly nauseated. I spoke with Dr. Nicole he agreed to admit the patient admitted the patient wrote admitting orders - Lab Data Result diagrams: 10/02/18 08:40 10/02/18 08:40 Lab Results 10/02/18 10/02/18 10/02/18 Range/Units 08:40 08:40 08:40 WBC 7.3 (3.8-10.6) k/uL RBC 4.76 (3.80-5.40) m/uL Hgb 13.6 (11.4-16.0) gm/dL Hct 42.4 (34.0-46.0) % MCV 89.0 (80.0-100.0) fL MCH 28.6 (25.0-35.0) pg MCHC 32.1 (31.0-37.0) g/dL RDW 14.9 (11.5-15.5) % Plt Count 219 (150-450) k/uL Neutrophils % 56 % Lymphocytes % 35 % Monocytes % 4 % Eosinophils % 3 % Basophils % 0 % Neutrophils # 4.1 (1.3-7.7) k/uL Lymphocytes # 2.5 (1.0-4.8) k/uL Monocytes # 0.3 (0-1.0) k/uL Eosinophils # 0.2 (0-0.7) k/uL Basophils # 0.0 (0-0.2) k/uL PT (9.0-12.0) sec INR (<1.2) APTT (22.0-30.0) sec Sodium 139 (137-145) mmol/L Potassium 4.5 (3.5-5.1) mmol/L Chloride 105 (98-107) mmol/L Carbon Dioxide 25 (22-30) mmol/L Anion Gap 9 mmol/L BUN 16 (7-17) mg/dL Creatinine 0.57 (0.52-1.04) mg/dL Est GFR (CKD-EPI)AfAm >90 (>60 ml/min/1.73 sqM) Est GFR (CKD-EPI)NonAf >90 (>60 ml/min/1.73 sqM) Glucose 127 H (74-99) mg/dL Calcium 9.4 (8.4-10.2) mg/dL Magnesium 1.9 (1.6-2.3) mg/dL Total Bilirubin 1.2 (0.2-1.3) mg/dL AST 42 H (14-36) U/L ALT 27 (9-52) U/L Alkaline Phosphatase 109 (38-126) U/L Total Creatine Kinase 210 H (30-135) U/L CK-MB (CK-2) 1.5 (0.0-2.4) ng/mL CK-MB (CK-2) Rel Index 0.7 Troponin I <0.012 (0.000-0.034) ng/mL Total Protein 8.0 (6.3-8.2) g/dL Albumin 4.2 (3.5-5.0) g/dL 10/02/18 Range/Units 08:40 WBC (3.8-10.6) k/uL RBC (3.80-5.40) m/uL Hgb (11.4-16.0) gm/dL Hct (34.0-46.0) % MCV (80.0-100.0) fL MCH (25.0-35.0) pg MCHC (31.0-37.0) g/dL RDW (11.5-15.5) % Plt Count (150-450) k/uL Neutrophils % % Lymphocytes % % Monocytes % % Eosinophils % % Basophils % % Neutrophils # (1.3-7.7) k/uL Lymphocytes # (1.0-4.8) k/uL Monocytes # (0-1.0) k/uL Eosinophils # (0-0.7) k/uL Basophils # (0-0.2) k/uL PT 9.6 (9.0-12.0) sec INR 1.0 (<1.2) APTT 23.6 (22.0-30.0) sec Sodium (137-145) mmol/L Potassium (3.5-5.1) mmol/L Chloride (98-107) mmol/L Carbon Dioxide (22-30) mmol/L Anion Gap mmol/L BUN (7-17) mg/dL Creatinine (0.52-1.04) mg/dL Est GFR (CKD-EPI)AfAm (>60 ml/min/1.73 sqM) Est GFR (CKD-EPI)NonAf (>60 ml/min/1.73 sqM) Glucose (74-99) mg/dL Calcium (8.4-10.2) mg/dL Magnesium (1.6-2.3) mg/dL Total Bilirubin (0.2-1.3) mg/dL AST (14-36) U/L ALT (9-52) U/L Alkaline Phosphatase (38-126) U/L Total Creatine Kinase (30-135) U/L CK-MB (CK-2) (0.0-2.4) ng/mL CK-MB (CK-2) Rel Index Troponin I (0.000-0.034) ng/mL Total Protein (6.3-8.2) g/dL Albumin (3.5-5.0) g/dL Disposition Clinical Impression: Vertigo Disposition: ADMITTED IP TO THIS HOSP Referrals: Ashish Bray III, MD [Primary Care Provider] - 1-2 days Time of Disposition: 11:23
[2018-10-02 09:27] LABS: Partial Thromboplastin Time 23.6 sec (22.0-30.0); Prothrombin Time 9.6 sec (9.0-12.0)
[2018-10-02 09:31] LABS: Creatine Kinase 210 U/L (30-135)
[2018-10-02 09:44] LABS: Creatine Kinase MB 1.5 ng/mL (0.0-2.4); Troponin I <0.012 ng/mL (0.000-0.034)
[2018-10-02 09:51] LABS: Anion Gap 9 mmol/L; Blood Urea Nitrogen 16 mg/dL (7-17); Calcium 9.4 mg/dL (8.4-10.2); Carbon Dioxide 25 mmol/L (22-30); Chloride 105 mmol/L (98-107); Glucose 127 mg/dL (74-99); Magnesium 1.9 mg/dL (1.6-2.3); Sodium 139 mmol/L (137-145); Total Bilirubin 1.2 mg/dL (0.2-1.3)
[2018-10-02 09:52] LABS: ALT 27 U/L (9-52); AST 42 U/L (14-36); Albumin 4.2 g/dL (3.5-5.0); Alkaline Phosphatase 109 U/L (38-126)
[2018-10-02 09:53] LABS: Potassium 4.5 mmol/L (3.5-5.1)
--- NOTE | 2018-10-02 09:56 | XR ---
EXAMINATION TYPE: XR chest 2V DATE OF EXAM: 10/02/2018 COMPARISON: 01/15/2012 HISTORY: Chest pain, headache and vertigo TECHNIQUE: Frontal and lateral views of the chest are obtained. FINDINGS: There is no focal air space opacity, pleural effusion, or pneumothorax seen. The cardiac silhouette size is mildly enlarged. The osseous structures are intact. Mild multilevel degenerative changes of the thoracic spine are seen. IMPRESSION: No acute cardiopulmonary process.
--- NOTE | 2018-10-02 09:59 | CT ---
EXAMINATION TYPE: CT brain wo con DATE OF EXAM: 10/02/2018 COMPARISON: 04/07/2012 HISTORY: Vertigo, Migraine CT DLP: 1151.4 mGycm Automated exposure control for dose reduction was used. FINDINGS: There is a focal area of encephalomalacia within the right frontal lobe that is CSF attenuated and de monstrates surrounding sulcal prominence indicating volume loss. Overall findings are remote although not seen on the prior of 2011. Patchy areas of hypoattenuation are scattered within the subcortical and periventricular white matter best appreciated in the centrum semiovale. No acute intracranial hem orrhage, midline shift or hydrocephalus is seen. No suspicious extra-axial fluid collection. Scalp so ft tissues are unremarkable. 8mm mucosal retention cyst is present within the left maxillary sinus an d there is scant left maxillary and ethmoidal mucosal thickening with hypoplasia of the frontal sinus es. Remaining paranasal sinuses and mastoid air cells are well aerated. IMPRESSION: ENCEPHALOMALACIA OF THE RIGHT FRONTAL LOBE FOCALLY FROM PRIOR REMOTE INFARCT OR INJURY. NO ACUTE INTR ACRANIAL HEMORRHAGE OR MIDLINE SHIFT. NO ACUTE INTRACRANIAL PROCESS.
[2018-10-02] MEDS ORDERED: SODIUM CHLORIDE 0.9% 1,000 ML IV ONE (11:23)
[2018-10-02] MEDS ORDERED: ALPRAZolam 0.25 MG TAB PO PRN (16:45)
[2018-10-02] MEDS ORDERED: TEMAZEPAM 15 MG CAP PO PRN (16:45)
[2018-10-02] MEDS ORDERED: hydrALAZINE HCL 20 MG/ML 1 ML VIAL IVP PRN (16:46)
--- NOTE | 2018-10-02 17:43 | US ---
EXAMINATION TYPE: US carotid duplex BILAT DATE OF EXAM: 10/02/2018 COMPARISON: NONE CLINICAL HISTORY: stroke. EXAM MEASUREMENTS: RIGHT: Peak Systolic Velocity (PSV) cm/sec ----- Right CCA: 78.4 ----- Right ICA: 69.6 ----- Right ECA: 120.5 ICA/CCA ratio: 0.9 RIGHT: End Diastole cm/sec ----- Right CCA: 27.5 ----- Right ICA: 5.7 ----- Right ECA: 21.7 LEFT: Peak Systolic Velocity (PSV) cm/sec ----- Left CCA: 93.8 ----- Left ICA: 80.5 ----- Left ECA: 83.2 ICA/CCA ratio: 0.9 LEFT: End Diastole cm/sec ----- Left CCA: 31.6 ----- Left ICA: 34.2 ----- Left ECA: 17.1 VERTEBRALS (direction of flow): Right Vertebral: Antegrade Left Vertebral: Antegrade Rhythm: Normal IMPRESSION: No hemodynamically significant narrowing of the carotid system. Normal antegrade flow the bilateral v ertebral arteries.
--- NOTE | 2018-10-02 18:15 | P.HPIM ---
History of Present Illness She will present female came into emergency department with complaints of sudden spinning around started today patient's vertiginous symptoms last for a few seconds with head movement patient gave partially positive answers for hearing problem and fullness in the ears. Patient normally has ALLERGIES, congestion but patient doesn't have any of the symptoms at this point of time patient had similar episodes in the past at the time symptoms lasted anywhere from 8 hour strep 3 days and it happened about 4 times in last 20 years patient denied any fever chills nausea vomiting upon appellation patient's gait is bit abnormal there is no truncal ataxia patient Romberg sign is positive with eyes closed and open as well. Discussed of the head did not show any significant abnormality patient denied any ringing of ears. I did perform mali- halspike maneuver with which his symptoms has gotten bit worse but no improvement are a did not see any nystagmus with the maneuver Review of Systems REVIEW OF SYSTEMS: CONSTITUTIONAL: No fever, no malaise, no fatigue. HEENT: No recent visual problems or hearing problems. Denied any sore throat. CARDIOVASCULAR: No chest pain, orthopnea, PND, no palpitations, no syncope. PULMONARY: No shortness of breath, no cough, no hemoptysis. GASTROINTESTINAL: No diarrhea, no nausea, no vomiting, no abdominal pain. Normoactive bowel sounds. NEUROLOGICAL: No headaches, no weakness, no numbness. HEMATOLOGICAL: Denies any bleeding or petechiae. GENITOURINARY: Denies any burning micturition, frequency, or urgency. MUSCULOSKELETAL/RHEUMATOLOGICAL: Denies any joint pain, swelling, or any muscle pain. ENDOCRINE: Denies any polyuria or polydipsia. The rest of the 14-point review of systems is negative. Past Medical History Past Medical History: CVA/TIA, Hyperlipidemia, Hypertension, Sleep Apnea/CPAP/ BIPAP Additional Past Medical History / Comment(s): TIA, C PAP History of Any Multi-Drug Resistant Organisms: None Reported Past Surgical History: Ablation, Heart Catheterization, Tubal Ligation Additional Past Surgical History / Comment(s): ARTHROSCOPIC LEFT KNEE, SURGERY FOR HEAD INJURY , UTERINE ABLATION. NASAL SURGERY TLk june 15, 2017 Past Anesthesia/Blood Transfusion Reactions: Motion Sickness, Postoperative Nausea & Vomiting (PONV) Past Psychological History: No Psychological Hx Reported Smoking Status: Never smoker Past Alcohol Use History: Rare Past Drug Use History: None Reported - Past Family History Mother Family Medical History: No Reported History Daughter(s) Family Medical History: Cancer Additional Family Medical History / Comment(s): BREAST CANCER Medications and Allergies Home Medications Medication Instructions Recorded Confirmed Type Triamterene-Hctz 37.5-25Mg 1 tab PO DAILY 06/05/17 10/02/18 History [Maxzide 37.5-25] Aspirin 81 mg PO DAILY #30 chewable 10/02/18 Rx Meclizine [Antivert] 25 mg PO TID PRN #30 tab 10/02/18 Rx Allergies Allergy/AdvReac Type Severity Reaction Status Date / Time No Known Allergies Allergy Verified 10/02/18 12:03 Physical Exam Vitals: Vital Signs Temp Pulse Resp BP Pulse Ox 10/02/18 10:47 60 16 164/81 97 10/02/18 10:30 58 L 19 176/99 99 10/02/18 08:17 97.4 F L 61 18 159/93 99 Intake and Output 10/02/18 10/02/18 10/02/18 06:59 14:59 22:59 Other: Weight 102.058 kg PHYSICAL EXAMINATION: GENERAL: The patient is alert and oriented x3, not in any acute distress. Well developed, well nourished. HEENT: Pupils are round and equally reacting to light. EOMI. No scleral icterus. No conjunctival pallor. Normocephalic, atraumatic. No pharyngeal erythema. No thyromegaly. CARDIOVASCULAR: S1 and S2 present. No murmurs, rubs, or gallops. PULMONARY: Chest is clear to auscultation, no wheezing or crackles. ABDOMEN: Soft, nontender, nondistended, normoactive bowel sounds. No palpable organomegaly. MUSCULOSKELETAL: No joint swelling or deformity. EXTREMITIES: No cyanosis, clubbing, or pedal edema. NEUROLOGICAL: Gross neurological examination did not reveal any focal deficits. Rest of the neuro exam as mentioned above SKIN: No rashes. Results CBC & Chem 7: 10/02/18 08:40 10/02/18 08:40 Labs: Abnormal Lab Results - Last 24 Hours (Table) 10/02/18 10/02/18 Range/Units 08:40 08:40 Glucose 127 H (74-99) mg/dL AST 42 H (14-36) U/L Total Creatine Kinase 210 H (30-135) U/L Assessment and Plan Plan: -Vertigo: Patient has peripheral vertigo possibly benign ration of vertigo symptomatically treatment with meclizine. I do not believe patient has TIA or stroke are cerebellar stroke carotid Doppler was obtained which did not show any significant abnormality unsure whether this is necessary. 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
--- NOTE | 2018-10-02 19:30 | HP ---
HISTORY AND PHYSICAL DATE OF SERVICE: 10/02/2018 CHIEF COMPLAINT: Vertigo. HISTORY OF PRESENT ILLNESS: This 58-year-old woman with a past medical history of multiple medical problems including recurrent episodes of vertigo, history of CVA/TIA, history of hypertension, hyperlipidemia, sleep apnea, history of cardiac catheterization, being followed by Dr. Bray in the outpatient setting was complaining of vertigo. The patient woke up at 1 o'clock this morning and hit the bed. The patient apparently slept in an unusual position and the patient felt dizzy and the patient was throwing up and unable to keep anything down and for each movement of the head, the patient has recurrent symptoms and because of persistent symptoms, unable to keep anything down. The patient came to [facility] and admitted for further evaluation and treatment. There is no history of fever, rigors. No history of any loss of consciousness, seizures. Did have headache prior to the onset of the current symptoms. A CT scan showed encephalomalacia of the right frontal lobe from possible remote infarct injury. No acute changes are noted. PAST MEDICAL HISTORY: History of CVA, TIA, hypertension, hyperlipidemia, sleep apnea, TIA, CPAP. MEDICATIONS: Prior to admission include: 1. Maxzide 37.5/25 p.o. daily. 2. Antivert 25 mg t.i.d. 3. Aspirin 81 mg daily. ALLERGIES: None. FAMILY HISTORY: History of breast cancer in the family. SOCIAL HISTORY: No history of smoking. No history of alcohol intake. REVIEW OF SYSTEMS: ENT as mentioned earlier. CARDIOVASCULAR: No angina or palpitations. Respiratory: As mentioned earlier. GI: No nausea or vomiting. : No dysuria. NERVOUS SYSTEM: As mentioned earlier. Allergy/Immunology: No asthma or hay fever. MUSCULOSKELETAL: As mentioned earlier. Hematology: No history of anemia. ENDOCRINE: No history of diabetes or hypothyroidism. CONSTITUTIONAL: As mentioned earlier. Dermatology: Negative. Rheumatology: Negative. Psychiatry: As mentioned earlier. PHYSICAL EXAMINATION: Alert and oriented times three. Pulse is 58, blood pressure 170/99, respiration 19, temperature 97.4, pulse ox 99% on room air. HEENT: Conjunctivae normal. Oral mucosa moist. NECK is no jugular venous distention. No carotid bruit. No lymph node enlargement. CARDIOVASCULAR SYSTEM: S1, S2. RESPIRATION: Breath sounds diminished in the bases. No rhonchi. No crackles. ABDOMEN: Soft, nontender. No mass palpable. LEGS: No edema. No swelling. NERVOUS SYSTEM: Higher functions as mentioned earlier. Minimal nystagmus was noted. Otherwise, no diplopia. Otherwise moves all 4 limbs. No signs of cerebellar dysfunction. Gait not tested. The patient is severely vertiginous. SKIN: No ulcer, rash or bleeding. JOINTS: No active deforming arthropathy. LABS: At this time shows CBC within normal limits. INR is 1 and glucose 127. AST is 42. The creatinine kinase is 210. ASSESSMENT: 1. Acute vertiginous episode, possibly benign pressure vertigo, recurrent attacks with severe disability, unable to keep anything down. Rule out transient ischemic attack. 2. Encephalomalacia of the right frontal lobe, previous transient ischemic attack and cerebrovascular accident. 3. Hypertension. 4. Hyperlipidemia. 5. Cerebrovascular accident/transient ischemic attack. 6. Sleep apnea. 7. History of transient ischemic attack. 8. History of cardiac ablation. 9. Cardiac catheterization. 10.History of degenerative joint disease. 11.Obesity. DISCUSSION AND RECOMMENDATIONS: In this 58-year-old woman who presented with multiple complex medical issues, we will monitor the patient closely, continue the current medications, management and symptomatic treatment. Otherwise, I would recommend symptomatic treatment and monitor blood pressure closely. Neurology consultation. Neurovascular workup. Antiplatelet agents. The prognosis guarded because of multiple complex medical issues. Discussed with the patient who understands and agrees. Further recommendations to follow. MMODL / IJN: [id number] /
[2018-10-02] MEDS: MECLIZINE 25 MG TAB PO PRN (20:04)
[2018-10-02] MEDS: ASPIRIN 81 MG PO SCH (20:09)
[2018-10-02] MEDS: HEPARIN SODIUM,PORCINE 5,000 UNIT/ML 1 ML VIAL SQ SCH (23:11)
[2018-10-02] MEDS: amLODIPine 5 MG TAB PO SCH (23:11)
[2018-10-03] MEDS: MECLIZINE 25 MG TAB PO PRN (05:00)
[2018-10-03] MEDS ORDERED: PANTOPRAZOLE 40 MG TABLET PO SCH (07:30)
[2018-10-03 07:56] LABS: Basophils % (A) 0 %; Eosinophils # (A) 0.2 k/uL (0-0.7); Eosinophils % (A) 4 %; HCT 40.7 % (34.0-46.0); HGB 13.2 gm/dL (11.4-16.0); Lymphocytes # (A) 2.1 k/uL (1.0-4.8); Lymphocytes % (A) 35 %; MCH 29.1 pg (25.0-35.0); MCHC 32.3 g/dL (31.0-37.0); MCV 89.9 fL (80.0-100.0); Mean Platelet Volume 8.4; Monocytes # (A) 0.3 k/uL (0-1.0); Monocytes % (A) 6 %; Neutrophils # (A) 3.3 k/uL (1.3-7.7); Neutrophils % (A) 54 %; Platelet Count 171 k/uL (150-450); RBC 4.53 m/uL (3.80-5.40); RDW 14.6 % (11.5-15.5)
[2018-10-03 08:05] VITALS: TEMP 97.4
[2018-10-03 08:17] LABS: Anion Gap 8 mmol/L; Blood Urea Nitrogen 20 mg/dL (7-17); Calcium 9.2 mg/dL (8.4-10.2); Carbon Dioxide 26 mmol/L (22-30); Chloride 106 mmol/L (98-107); Cholesterol 254 mg/dL (<200); Glucose 140 mg/dL (74-99); HDL Cholesterol 50 mg/dL (40-60); LDL Cholesterol,Calculated 153 mg/dL (0-99); Potassium 4.1 mmol/L (3.5-5.1); Sodium 140 mmol/L (137-145); Triglycerides 255 mg/dL (<150)
[2018-10-03] MEDS ORDERED: TRIAMTERENE-HCTZ 37.5-25MG 1 EACH TAB PO SCH (09:00)
[2018-10-03] MEDS: ASPIRIN 81 MG PO SCH (10:33)
[2018-10-03] MEDS: amLODIPine 5 MG TAB PO SCH (10:36)
[2018-10-03] MEDS: HEPARIN SODIUM,PORCINE 5,000 UNIT/ML 1 ML VIAL SQ SCH (10:36)
[2018-10-03 11:08] VITALS: PULSE 82; RESP 18
[2018-10-03] MEDS ORDERED: MULTIVITAMINS, THERA 1 EACH TAB PO SCH (12:00)
[2018-10-03 17:03] VITALS: BP 145/99
--- NOTE | 2018-10-03 19:23 | P.DS ---
Providers Date of admission: 10/02/18 11:23 Attending physician: aSndy Nicole Consults: 10/02/18 16:44 Consult Physician Routine Consulting Provider: Luis Glez Consult Reason/Comments: vertigo Do you want consulting provider notified?: Yes Primary care physician: Ashish Aiken [facility] Course: Patient was admitted for benign push vertigo significant improved symptoms with meclizine. Patient will be discharged to follow up with neurology as an outpatient. Patient had a carotid Doppler which was negative my suspicion is extremely low for stroke no further intervention is necessary. Patient LDL is elevated patient had a history of for TIA in the past because of which patient will be discharged on aspirin and a statin. PHYSICAL EXAMINATION: GENERAL: The patient is alert and oriented x3, not in any acute distress. Well developed, well nourished. HEENT: Pupils are round and equally reacting to light. EOMI. No scleral icterus. No conjunctival pallor. Normocephalic, atraumatic. No pharyngeal erythema. No thyromegaly. CARDIOVASCULAR: S1 and S2 present. No murmurs, rubs, or gallops. PULMONARY: Chest is clear to auscultation, no wheezing or crackles. ABDOMEN: Soft, nontender, nondistended, normoactive bowel sounds. No palpable organomegaly. MUSCULOSKELETAL: No joint swelling or deformity. EXTREMITIES: No cyanosis, clubbing, or pedal edema. NEUROLOGICAL: Gross neurological examination did not reveal any focal deficits. SKIN: No rashes. For rest of the chronic medical problems hospital physician course please refer to my HPI from yesterday Patient Condition at Discharge: Good Plan - Discharge Summary New Discharge Prescriptions: New Aspirin 81 mg PO DAILY #30 chewable Meclizine [Antivert] 25 mg PO TID PRN #30 tab PRN Reason: Vertigo Atorvastatin Calcium [Lipitor] 20 mg PO HS #30 tab No Action Triamterene-Hctz 37.5-25Mg [Maxzide 37.5-25] 1 tab PO DAILY Discharge Medication List Triamterene-Hctz 37.5-25Mg [Maxzide 37.5-25] 1 tab PO DAILY 06/05/17 [History] Aspirin 81 mg PO DAILY #30 chewable 10/02/18 [Rx] Meclizine [Antivert] 25 mg PO TID PRN #30 tab 10/02/18 [Rx] Atorvastatin Calcium [Lipitor] 20 mg PO HS #30 tab 10/03/18 [Rx] Follow up Appointment(s)/Referral(s): Luis Glez MD [STAFF PHYSICIAN] - 1 Week Ashish Bray III, MD [Primary Care Provider] - 1-2 days Patient Instructions/Handouts: Vertigo (DC), Dizziness (GEN) Discharge Disposition: HOME SELF-CARE
== END 2018-10-03 16:45 | disposition home or self-care (01) ==
LOC: EC 08:10 → 1SOBS 11:23
PROVIDERS: ADMIT Hospitalist; ATTEND Hospitalist
DX: H81.399 Other peripheral vertigo, unspecified ear (principal); Z87.820 Personal history of traumatic brain injury; G93.89 Other specified disorders of brain; R51 Headache; E78.00 Pure hypercholesterolemia, unspecified; I10 Essential (primary) hypertension; E78.5 Hyperlipidemia, unspecified; Z86.73 Personal history of transient ischemic attack (TIA), and cerebral infarction without residual deficits; G47.30 Sleep apnea, unspecified; Z99.89 Dependence on other enabling machines and devices; Z80.3 Family history of malignant neoplasm of breast; E66.9 Obesity, unspecified; Z68.41 Body mass index [BMI] 40.0-44.9, adult; M19.90 Unspecified osteoarthritis, unspecified site; Z79.82 Long term (current) use of aspirin; Z79.899 Other long term (current) drug therapy
CPT/HCPCS: 99285; 96361; 96372; 96374; 96375; 36415; 93005; 80061; 80053; 80048; 82550; 82553; 83735; 84484; 85025 ×2; 85610; 85730; 71046; 93880; 70450; G0378 ×2; J1644; J3360; J2405

== ENCOUNTER → 2020-10-29 | Outpatient (CLI) | payer BC ==
--- NOTE | 2020-10-29 13:33 | MM ---
Reason for exam: screening (asymptomatic). Last mammogram was performed 5 years and 11 months ago. History: Patient is postmenopausal. Family history of breast cancer in daughter at age 30. Physical Findings: A clinical breast exam by your physician is recommended on an annual basis and results should be correlated with mammographic findings. MG 3D Screening Mammo W/Cad Bilateral CC and MLO view(s) were taken. Prior study comparison: December 11, 2014, bilateral MG diagnostic mammo w CAD [facility]. December 13, 2013, [facility] DIGITAL LEFT BREAST MAMMOGRAM w/CAD. The breast tissue is heterogeneously dense. This may lower the sensitivity of mammography. Finding #1: Architectural distortion in the upper outer quadrant, middle posterior position of the left breast on CC 30/74 and MLO 26/88. Finding #2: There are typically benign round calcifications. New finding since December 11, 2014. ASSESSMENT: Incomplete: need additional imaging evaluation, BI-RAD 0 RECOMMENDATION: Special view mammogram and ultrasound of the left breast. [facility] will attempt to contact patient to return for supplemental views and ultrasound.
== END | disposition home or self-care (01) ==
LOC: RADMAMWWP 07:47
PROVIDERS: ATTEND Family Medicine
DX: Z12.31 Encounter for screening mammogram for malignant neoplasm of breast (principal)
CPT/HCPCS: 77063; 77067

== ENCOUNTER → 2020-11-05 | Outpatient (CLI) | payer BC ==
--- NOTE | 2020-11-05 09:33 | MM ---
Reason for exam: additional evaluation requested from abnormal screening. Last mammogram was performed less than 1 month ago. History: Patient is postmenopausal. Family history of breast cancer in daughter at age 30. Physical Findings: Nurse did not find any significant physical abnormalities on exam. MG 3D Work Up W/Cad LT Spot compression CC, spot compression MLO, and LM view(s) were taken of the left breast. Prior study comparison: October 29, 2020, bilateral MG 3d screening mammo w/cad. December 11, 2014, bilateral MG diagnostic mammo w CAD CHARLY. There are scattered fibroglandular densities. Spot views in CC and MLO projection show no definite abnormality. Superior asymmetric density LM view may persist on 3D. These results were verbally communicated with the patient and result sheet given to the patient on 11/05/20. ASSESSMENT: Incomplete: need additional imaging evaluation, BI-RAD 0 RECOMMENDATION: Ultrasound of the left breast. (10-2 o'clock)
--- NOTE | 2020-11-05 09:34 | USB ---
Reason for exam: additional evaluation requested from abnormal screening. History: Patient is postmenopausal. Family history of breast cancer in daughter at age 30. US Breast Workup Limited LT Left limited breast ultrasound including focal area of concern, retroareolar and axilla demonstrates no cystic or solid lesion seen. Scanned 10-2 o'clock. These results were verbally communicated with the patient and result sheet given to the patient on 11/05/20. ASSESSMENT: Probably benign, BI-RAD 3 RECOMMENDATION: Follow-up diagnostic mammogram of the left breast in 6 months.
== END | disposition home or self-care (01) ==
LOC: RADMAMWWP 06:57
PROVIDERS: ATTEND Family Medicine
DX: R92.8 Other abnormal and inconclusive findings on diagnostic imaging of breast (principal)
CPT/HCPCS: 77061; 77065

== ENCOUNTER 2021-05-13 07:20 | Day surgery (SDC) | payer BC ==
[2021-05-10 10:20] VITALS: BMI 42.0
[~2021-05-13 07:20] MED LIST changes: -ACETAMINOPHEN TAB 500 MG TAB PO ONE; -DEXAMETHASONE SOD PHOSPHATE 10 MG/ML 1 ML VIAL IV ONE; -HYDROmorphone 1 MG/ML 1 ML SYRINGE IVP PRN; +LACTATED RINGERS 1,000 ML IV SCH; -MELOXICAM 7.5 MG TAB PO ONE; -MIDAZOLAM 2 MG/2 ML VIAL IV PRN; -ONDANSETRON 4 MG/2 ML VIAL IVP ONE; -TRANEXAMIC ACID 1,000 MG in SODIUM CHLORIDE 0.9% 100 ML IVPB ONE; -ceFAZolin 2 GM in SODIUM CHLORIDE 0.9% 100 ML IVPB ONE
[2021-05-13] MEDS ORDERED: ONDANSETRON 4 MG/2 ML VIAL ONE (07:58)
[2021-05-13] MEDS ORDERED: DEXAMETHASONE SOD PHOSPHATE 4 MG/ML 1 ML VIAL IV ONE (08:00)
[2021-05-13 08:06] LABS: Glucose,Whole Blood 147 mg/dL (75-99)
[2021-05-13 08:08] VITALS: TEMP 97
[2021-05-13] MEDS ORDERED: PROPOFOL 10 MG/ML 20 ML VIAL IV ONE (08:20)
[2021-05-13] MEDS ORDERED: LIDOCAINE 1% INJ 10MG/ML (20 ML MDV) ONE (08:20)
--- NOTE | 2021-05-13 08:46 | P.PCN ---
Date of Procedure: 05/13/21 Description of Procedure: BRIEF HISTORY: Patient is a 60-year-old female presenting for outpatient colonoscopy for screening for malignant neoplasm of the colon. Last colonoscopy reported as 11 years ago. No change in bowel habits or family history of colon cancer. PROCEDURE PERFORMED: Colonoscopy with polypectomy. PREOPERATIVE DIAGNOSIS: Screening for malignant neoplasm of the colon, last colonoscopy 11 years ago. ESTIMATED BLOOD LOSS: Minimal. IV sedation per Anesthesia. PROCEDURE: After informed consent was obtained, the patient, was brought into the endoscopy unit. IV sedation was administered by Anesthesia under continuous monitoring. Digital rectal examination was normal. Initially the Olympus CF-190 flexible video colonoscope was then inserted in the rectum, gradually advanced into the cecum without any difficulty. Careful examination was performed as the scope was gradually being withdrawn. Ileocecal valve and the appendiceal orifice were visualized and appeared normal. Prep was excellent. Mucosa of the cecum, ascending colon, transverse colon, descending colon, sigmoid colon, and rectum appeared normal. Multiple small and large mouth diverticula throughout the entire examined colon. Diminutive polyps measuring 2-3 mm in size removed with cold snare polypectomy from the descending colon and rectum. Retroflexion was performed in the rectum and no lesions were seen. The patient tolerated the procedure well. IMPRESSION: 2 diminutive polyps removed with cold snare polypectomy from the descending colon and rectum. Moderate pandiverticulosis. RECOMMENDATIONS: Findings of this examination were discussed with the patient and her family. Okay to resume diet. Okay to resume medications. Await pathology from polypectomies. Recommend repeat colonoscopy in 7 years for colon polyps pending pathology from polypectomies (10 years if hyperplastic polyps).
[2021-05-13 08:49] VITALS: RESP 16
[2021-05-13 09:21] VITALS: BP 115/69; PULSE 61
== END 2021-05-13 09:50 | disposition home or self-care (01) ==
LOC: ORWHC2ENDO 07:20
PROVIDERS: ATTEND Internal Medicine
DX: Z12.11 Encounter for screening for malignant neoplasm of colon (principal); K57.90 Diverticulosis of intestine, part unspecified, without perforation or abscess without bleeding; D12.4 Benign neoplasm of descending colon; K62.1 Rectal polyp; I10 Essential (primary) hypertension; E78.5 Hyperlipidemia, unspecified; G47.33 Obstructive sleep apnea (adult) (pediatric); Z86.73 Personal history of transient ischemic attack (TIA), and cerebral infarction without residual deficits; Z79.899 Other long term (current) drug therapy
CPT/HCPCS: 88305; 45385; J1100; J2405; J2001; J2704

== ENCOUNTER → 2021-06-27 | Outpatient (CLI) | payer BC ==
--- NOTE | 2021-06-27 11:04 | MM ---
Reason for exam: follow-up at short interval from prior study. Last mammogram was performed 8 months ago. History: Patient is postmenopausal. Family history of breast cancer in daughter at age 30. Physical Findings: Nurse did not find any significant physical abnormalities on exam. MG 3D Diag Mammo W/Cad LT CC and MLO view(s) were taken of the left breast. Prior study comparison: November 05, 2020, left breast MG 3d work up w/cad LT. October 29, 2020, bilateral MG 3d screening mammo w/cad. There are scattered fibroglandular densities. There is chronic nodularity in the left breast. No significant new findings when compared with previous films. These results were verbally communicated with the patient and result sheet given to the patient on 06/27/21. ASSESSMENT: Benign, BI-RAD 2 RECOMMENDATION: Return to routine screening mammogram schedule for both breasts. Back on schedule.
== END | disposition home or self-care (01) ==
LOC: RADMAMWWP 10:08
PROVIDERS: ATTEND Family Medicine
DX: N64.89 Other specified disorders of breast (principal); Z78.0 Asymptomatic menopausal state; Z80.3 Family history of malignant neoplasm of breast
CPT/HCPCS: 77061; 77065

== ENCOUNTER → 2024-09-27 | Outpatient (CLI) | payer MEDICARE ==
--- NOTE | 2024-09-27 07:56 | MM ---
Reason for Exam: Screening (asymptomatic). Last mammogram was performed 3 year(s) and 11 month(s) ago. Patient History: Menarche at age 8. First Full-Term at age 19. Postmenopausal. Patient has history of breast feeding. Daughter had breast cancer, age 30. Risk Values: Cierra 5 year model risk: 3.5%. NCI Lifetime model risk: 12.3%. Prior Study Comparison: 12/11/2014 Bilateral Diagnostic Mammogram, [facility]. 10/29/2020 Bilateral Screening Mammogram, [facility]. 11/05/2020 Left Diagnostic Mammogram, [facility]. 06/27/2021 Left Diagnostic Mammogram, [facility]. Tissue Density: The breasts are heterogeneously dense, which may obscure small masses. Findings: Analyzed By CAD. There is no suspicious group of microcalcifications or new suspicious mass in either breast. Benign-appearing lymph nodes in the axilla stable benign calcifications. Overall Assessment: Benign, BI-RAD 2 Management: Screening Mammogram of both breasts in 1 year. . Patient should continue monthly self-breast exams. A clinical breast exam by your physician is recommended on an annual basis. This exam should not preclude additional follow-up of suspicious palpable abnormalities. Note on Cierra scores and lifetime risk: 1. A Cierra score greater than 3% is considered moderate risk. If this is the case, consider specialist referral to assess eligibility for a risk reducing agent. 2. If overall lifetime risk for the development of breast cancer is 20% or higher, the patient may qualify for future screening with alternating mammogram and breast MRI. [facility], , 09/27/2024 7:53 AM. Electronically signed and approved by: Dinesh Mccauley M.D. Radiologis
== END | disposition home or self-care (01) ==
LOC: RADMAMWWP 06:52
PROVIDERS: ATTEND Family Medicine
DX: Z12.31 Encounter for screening mammogram for malignant neoplasm of breast (principal); Z78.0 Asymptomatic menopausal state; Z80.3 Family history of malignant neoplasm of breast; R92.333 Mammographic heterogeneous density, bilateral breasts
CPT/HCPCS: 77063; 77067